=== PATIENT | male | born 1995 | race Hispanic/Latino ===

== ENCOUNTER 2020-04-12 06:11 | Emergency (ER) | payer OTHER, SELFPAY ==
[2020-04-12] MEDS ORDERED: Lidocaine 2% PF 5 ML VIAL ONE (06:40)
[2020-04-12] MEDS ORDERED: Bacitracin 1 PK ONE (06:41)
[2020-04-12] MEDS ORDERED: CEFAZOLIN 1 GM VIAL ONE (07:21)
--- NOTE | 2020-04-12 14:09 | RAD ---
RIGHT HAND THREE VIEWS: 04/12/20 No fracture was seen. No opaque foreign body was evident; however, wood might not be seen on plain ra diography. All bones of the hand and wrist showed no acute findings. An old ulnar styloid injury was noted. IMPRESSION: No acute finding. POS: HOME
== END 2020-04-12 07:45 | disposition home or self-care (01) ==
LOC: BURERS 06:11
DX: S60.551A Superficial foreign body of right hand, initial encounter (principal); F17.210 Nicotine dependence, cigarettes, uncomplicated; W45.8XXA Other foreign body or object entering through skin, initial encounter
CPT/HCPCS: 64450; 96372; J0690; J2001